=== PATIENT | female | born 1950 | race Caucasian/White ===

== ENCOUNTER 2021-07-07 15:45 | Emergency (ER) | payer MEDICARE, SELFPAY ==
--- NOTE | ~2021-07-07 | XR_ITS ---
EXAMINATION: XR CHEST CLINICAL INFORMATION: Chest pain last week COMPARISON: Chest x-ray 06/10/2014. CT chest 06/26/2014 TECHNIQUE: 2 views of the chest were obtained. FINDINGS: Lungs are clear. No pulmonary vascular congestion. There is no pleural effusion. The heart size is normal. The cardiac and mediastinal contours are normal. There are calcifications of the thoracic aorta. There are multilevel degenerative changes of dorsal spine. XR/XR chest 2V IMPRESSION: Unremarkable examination.
--- NOTE | 2021-07-07 15:47 | ECG_ITS ---
Test Reason : CHEST PAIN Blood Pressure : / mmHG Vent. Rate : 088 BPM Atrial Rate : 088 BPM P-R Int : 130 ms QRS Dur : 086 ms QT Int : 378 ms P-R-T Axes : 049 055 061 degrees QTc Int : 457 ms Normal sinus rhythm Normal ECG No previous ECGs available Referred By: Generic ED Physician Electronically Signed By:PARKER MIR
[2021-07-07 15:54] VITALS: BP 124/70; PULSE 88; RESP 19; TEMP 36.6; O2SAT 92; BMI 39.5
[2021-07-07 16:48] LABS: Basophils Percent Auto 0.2 % (0-2); Eosinophils Absolute Auto 0.1 X10*3/uL (0.0-0.4); Eosinophils Percent Auto 2.8 % (0-4); Hematocrit 46.8 % (37.0-47.0); Hemoglobin 15.1 g/dl (12.0-16.0); Imm Gran Abs Auto 0.02 X10*3/uL (0.00-0.03); Imm Gran Pct Auto 0.4 % (0.0-0.4); Lymphocytes Absolute Auto 0.6 X10*3/uL (1.2-4.9); Lymphocytes Percent Auto 11.8 % (20-40); MANUAL DIFF FLAG NO; Mean Corpuscular HGB Conc 32.3 g/dl (31.0-35.0); Mean Corpuscular Hemoglobin 28.5 pg (27.0-33.0); Mean Corpuscular Volume 88.3 fL (80.0-98.0); Mean Platelet Volume 9.9 fL (9.4-12.3); Monocytes Absolute Auto 0.6 X10*3/uL (0.1-1.2); Monocytes Percent Auto 11.6 % (2-11); Neutrophils Absolute Auto 3.6 x10*3/uL (2.0-8.3); Neutrophils Percent Auto 73.2 % (45-73); Platelet Count 192 X10*3/uL (160-400); Red Cell Distribution Width 13.4 % (11.0-16.0)
[2021-07-07 17:02] LABS: COVID-19 Test Negative (Negative)
[2021-07-07 17:04] LABS: Anion Gap 13 (12-20); Blood Urea Nitrogen 11 mg/dL (9-16); Calcium 9.2 mg/dL (8.4-10.2); Carbon Dioxide 28 mmol/L (22-29); Chloride 102 mmol/L (96-108); Creatinine Clr Calc Pharmacy 68.8; Estimated Glomerular Filt Rate > 60; Glucose Random 144 mg/dL (60-115); Potassium 4.3 mmol/L (3.3-5.1); Sodium 139 mmol/L (135-145)
[2021-07-07 17:09] LABS: B Type Natriuretic Peptide 44 pg/mL (<100)
[2021-07-07 20:44] VITALS: BP 132/64; PULSE 91; RESP 16; TEMP 37; O2SAT 97
--- NOTE | 2021-07-07 22:01 | ED_ITS ---
HPI - General Adult General Chief complaint: General Medical Stated complaint: reffered for chest pain, unspecified R07.9 Time Seen by Provider: 07/07/21 21:48 Source: patient Mode of arrival: ambulatory History of Present Illness HPI narrative: 70-year-old female who presents within incident of chest pressure last Sunday that was transient in nature and developed after patient was having significant issues with her self-reported acid reflux disease. The chest discomfort was not associated with that change in shortness of breath, dizziness, diaphoresis and she denies that the pain radiated anywhere. She states that she is felt ?good? since that time and is currently asymptomatic. She denies any recurrence activity or exertion. Patient states that her primary care provider wanted her to come in and get checked for possible heart attack. Related Data Allergies Allergy/AdvReac Type Severity Reaction Status Date / Time ibuprofen [IBUPROFEN] Allergy Unknown UNKNOWN Unverified 01/08/20 15:03 naproxen [From NAPROSYN] Allergy Unknown UNKNOWN Unverified 01/08/20 15:03 Review of Systems Review of Systems: Pertinent positives and negatives as stated in HPI 10 point review of systems is otherwise negative. PMFSH Past Medical History Source: nursing notes reviewed Medical History CAD (coronary artery disease) COPD (chronic obstructive pulmonary disease) GERD (gastroesophageal reflux disease) Hypothyroid Myocardial infarct Psoriasis Surgical History History of heart artery stent Social History Social History Advance Directives: Yes Advance Directives Information Provided: No Advance Directives on File: No Physical Exam ED Vital Signs: Vital Signs - 24 hr 07/07/21 15:54 07/07/21 20:44 07/07/21 23:18 Temperature 98 F 98.6 F 98.1 F Pulse Rate 88 91 88 Respiratory Rate 19 16 16 Blood Pressure 124/70 132/64 157/69 H Pulse Oximetry 92 97 95 BMI result Body Mass Index 39.5 VITAL SIGNS: Reviewed. GENERAL: Well developed, well nourished, in no acute distress. HEAD: Normocephalic/atraumatic EYES: PERRLA, EOMI EARS: Ext canals without abnormality OROPHARYNX: no oral lesions noted, posterior pharynx clear LUNGS: Normal breath sounds. No adventitious sounds or accessory muscle use. SpO2<92> CARDIOVASCULAR: Regular rate and rhythm without noted murmurs, no JVD or lower extremity edema. ABDOMEN: Soft, non-tender, non-distended with bowel sounds. MUSCULOSKELETAL: No tenderness, deformities, or effusions noted on gross ins pection. EXTREMITIES: No cyanosis, clubbing or edema. SKIN: Inspection of the skin reveals no rashes NEUROLOGIC: Alert and oriented x 4. Strength and sensation to light touch were grossly intact x 4. Course Course Course Narrative: 70-year-old female with history and clinical presentation more indicative symptoms related with acid reflux, unfortunately there are no EKGs for comparison but on review of current EKG there are no noted Q-waves to suggest recent cardiac event although this does not rule out angina and patient is highly encouraged to follow-up with a account processor. Patient states he has a account processor and will be getting a referral from her primary care provider tomorrow morning. HEART Score: 3 Serial troponins that although detectable, are flat and patient has remained arpita st pain-free. All results discussed with her at bedside and she was discharged home in stable condition with instructions to obtain the referral for her account processor in the morning. Medical Decision Making Lab Data Result diagrams: 07/07/21 16:41 07/07/21 16:41 Labs: Lab Results 07/07/21 07/07/21 07/07/21 Range/Units 16:41 16:41 16:41 WBC 5.0 (4.8-10.8) X10*3/uL RBC 5.30 (4.20-5.50) X10*6/uL Hgb 15.1 (12.0-16.0) g/dl Hct 46.8 (37.0-47.0) % MCV 88.3 (80.0-98.0) fL MCH 28.5 (27.0-33.0) pg MCHC 32.3 (31.0-35.0) g/dl RDW 13.4 (11.0-16.0) % Plt Count 192 (160-400) X10*3/uL MPV 9.9 (9.4-12.3) fL Immature Gran % (Auto) 0.4 (0.0-0.4) % Neut % (Auto) 73.2 H (45-73) % Lymph % (Auto) 11.8 L (20-40) % [place] % (Auto) 11.6 H (2-11) % Eos % (Auto) 2.8 (0-4) % Baso % (Auto) 0.2 (0-2) % Lymph # (Auto) 0.6 L (1.2-4.9) X10*3/uL [place] # (Auto) 0.6 (0.1-1.2) X10*3/uL Eos # (Auto) 0.1 (0.0-0.4) X10*3/uL Baso # (Auto) 0.0 (0.0-0.2) X10*3/uL Abs Immat Gran (auto) 0.02 (0.00-0.03) X10*3/uL Absolute Neuts (auto) 3.6 (2.0-8.3) x10*3/uL Absolute Nucleated RBC 0.000 (0.0-0.012) X10*3/uL Nucleated RBC % (auto) 0.0 (0.0-0.2) /100WBC Sodium 139 (135-145) mmol/L Potassium 4.3 (3.3-5.1) mmol/L Chloride 102 (96-108) mmol/L Carbon Dioxide 28 (22-29) mmol/L Anion Gap 13 (12-20) BUN 11 (9-16) mg/dL Creatinine 0.82 (0.5-1.4) mg/dL Estim Creat Clear Calc 68.8 Estimated GFR > 60 Random Glucose 144 H (60-115) mg/dL Calcium 9.2 (8.4-10.2) mg/dL Troponin I High Sens (<3.5-17.0) ng/L B-Natriuretic Peptide 44 (<100) pg/mL COVID-19 ([facility]) (Negative) COVID-19 Clin Com 07/07/21 07/07/21 07/07/21 Range/Units 16:41 16:41 22:03 WBC (4.8-10.8) X10*3/uL RBC (4.20-5.50) X10*6/uL Hgb (12.0-16.0) g/dl Hct (37.0-47.0) % MCV (80.0-98.0) fL MCH (27.0-33.0) pg MCHC (31.0-35.0) g/dl RDW (11.0-16.0) % Plt Count (160-400) X10*3/uL MPV (9.4-12.3) fL Immature Gran % (Auto) (0.0-0.4) % Neut % (Auto) (45-73) % Lymph % (Auto) (20-40) % [place] % (Auto) (2-11) % Eos % (Auto) (0-4) % Baso % (Auto) (0-2) % Lymph # (Auto) (1.2-4.9) X10*3/uL [place] # (Auto) (0.1-1.2) X10*3/uL Eos # (Auto) (0.0-0.4) X10*3/uL Baso # (Auto) (0.0-0.2) X10*3/uL Abs Immat Gran (auto) (0.00-0.03) X10*3/uL Absolute Neuts (auto) (2.0-8.3) x10*3/uL Absolute Nucleated RBC (0.0-0.012) X10*3/uL Nucleated RBC % (auto) (0.0-0.2) /100WBC Sodium (135-145) mmol/L Potassium (3.3-5.1) mmol/L Chloride (96-108) mmol/L Carbon Dioxide (22-29) mmol/L Anion Gap (12-20) BUN (9-16) mg/dL Creatinine (0.5-1.4) mg/dL Estim Creat Clear Calc Estimated GFR Random Glucose (60-115) mg/dL Calcium (8.4-10.2) mg/dL Troponin I High Sens 5.0 4.0 (<3.5-17.0) ng/L B-Natriuretic Peptide (<100) pg/mL COVID-19 ([facility]) Negative (Negative) COVID-19 Clin Com See Note Discharge Plan Discharge Clinical Impression: Chest pain Patient Disposition: Home, Self-Care Instructions: Chest Pain (ED) Additional Instructions: 1. Resume all home medications as prescribed. 2. Please obtain in the referral for the account processor in the morning from your primary care provider. Please return to the emergency room should you experience any worsening of symptoms. Referrals: Raquel Dave MD [Primary Care Provider] - 2 days
[2021-07-07 23:18] VITALS: BP 157/69; PULSE 88; RESP 16; TEMP 36.7; O2SAT 95
[2021-07-07] MEDS: Magnesium Hydrox/Alum Hydrox 30 ML ORAL.SUSP PO (23:41)
[2021-07-07] MEDS: Lidocaine HCl Viscous 2 % 15 ML SOLUTION 10 ML MUCOUS MEM (23:41)
== END 2021-07-07 23:43 | disposition home or self-care (01) ==
PROVIDERS: Emergency Provider Student in an Organized Health Care Education/Training Program; PCP Internal Medicine
DX: R07.9 Chest pain, unspecified (principal); Z20.822 Contact with and (suspected) exposure to COVID-19; R06.02 Shortness of breath; K21.9 Gastro-esophageal reflux disease without esophagitis
CPT/HCPCS: 36415; 71046; 80048; 83880; 84484; 85025; 87635; 93005; 99283; 99284

== ENCOUNTER 2021-12-05 11:06 | Outpatient (REF) | payer MEDICARE, SELFPAY ==
--- NOTE | ~2021-12-05 | XR_ITS ---
EXAMINATION: XR FOOT, LEFT CLINICAL INFORMATION: Heel swelling COMPARISON: None TECHNIQUE: AP, lateral, and oblique views of the left foot. FINDINGS: Bone alignment is normal. No fracture or dislocation is seen. The joint spaces are normal. There are large calcaneal spurs. There is soft tissue swelling over the Achilles tendon. XR/XR foot LT min 3V IMPRESSION: Large calcaneal spurs and soft tissue swelling over the Achilles tendon.
== END 2021-12-05 11:07 | disposition home or self-care (01) ==
LOC: HO.XRAY 11:06
PROVIDERS: PCP Internal Medicine; Visit Provider General Practice
DX: R22.42 Localized swelling, mass and lump, left lower limb (principal)
CPT/HCPCS: 73630